=== PATIENT | female | born 1985 | race African-American/Black ===

== ENCOUNTER 2016-12-16 22:57 | Emergency (ER) | payer SELFPAY ==
[~2016-12-16] VITALS: Ht 170.2 cm; Wt 68.0 kg
[2016-12-16 23:10] VITALS: BP 118/77
[2016-12-16] MEDS ORDERED: NKM (23:12)
[2016-12-16] MEDS ORDERED: HYDROCORTISONE30 G2 TP (23:46)
[2016-12-16] MEDS ORDERED: BENADRYL25 MG ORAL (23:46)
[2016-12-16 23:51] VITALS: BP 118/77
--- NOTE | 2016-12-17 03:38 | Emergency Room Report ---
History of Present Illness General Chief Complaint: Animal Bite Source: Patient Present Illness HPI Patient is a 31-year-old female presented after increased lower extremity discomfort. Patient reported having a bite to her leg. She said this had become itchy as well as swollen. Patient reported having onset of symptoms a few hours ago. The patient denied any fever. She denied severe pain. Patient states that she had not had similar rashes in the past. Allergies: Coded Allergies: No Known Allergies (Unverified , 12/16/16) Patient History Past Medical History: see triage record Last Menstrual Period: 11/23/16 Now: No : 4 Para: 2 Reviewed Nursing Documentation: PMH: Agreed, PSxH: Agreed Nursing Documentation-PMH Past Medical History: No Stated History Review of Systems All Other Systems: negative except mentioned in HPI Physical Exam Vital Signs Date Time Temp Pulse Resp B/P (MAP) Pulse Ox O2 Delivery O2 Flow Rate FiO2 12/16/16 23:08 98.8 71 14 118/77 100 Room Air General Appearance: well appearing, no apparent distress, alert, GCS 15 Head: normocephalic, atraumatic ENT: hearing grossly normal, normal voice Neck: full range of motion, supple Respiratory: no respiratory distress, speaking full sentences Cardiovascular #1: regular rate, rhythm, no edema Gastrointestinal: normal bowel sounds, non tender Musculoskeletal: back normal, digits/nails normal, no calf tenderness Neurologic: normal inspection, alert, oriented x3, responsive, normal gait Psychiatric: mood/affect normal Skin: other - area of erythema to posterior calf without fluctuance or abscess. Medical Decision Making Diagnostic Impression: Primary Impression: Insect bite ER Course Patient presented for skin rash. Differential diagnosis included wasn't limited to cellulitis, insect bite, lymphangitis, black bite among others. Patient's benign exam and does not appear to require any further imaging or laboratory testing at this time. The patient was noted to have evidence of what appears to be allergy. The patient does not have what appears to be cellulitic or lymphangitis areas. There is no evident abscess. Patient will be given pressures were had a cortisone cream 2.5% as well as oral antihistamines. The patient was advised to return if she began having fever or increased induration or other concerns. she is advised to have the wound checked in 2 days Last Vital Signs Date Time Temp Pulse Resp B/P (MAP) Pulse Ox O2 Delivery O2 Flow Rate FiO2 12/16/16 23:51 98.8 71 14 118/77 100 Room Air Status: improved Disposition: HOME, SELF-CARE Condition: Stable Scripts Hydrocortisone (Hydrocortisone Cream 2.5%) Y Cream.appl 1 APPLIC TP BID, #30 GM Prov: Shai Barron 12/16/16 Diphenhydramine Hcl* (BENADRYL*) 25 Mg Capsule 25 MG ORAL Q6H Y for Itching, #20 CAP Prov: Shai Barron 12/16/16 Referrals: NON PHYSICIAN (PCP) Patient Instructions: Insect Bite Shai Barron Dec 17, 2016 03:38
== END 2016-12-16 23:51 | disposition home or self-care (01) ==
LOC: EMR 23:48
DX: S80.862A Insect bite (nonvenomous), left lower leg, initial encounter (principal); W57.XXXA Bitten or stung by nonvenomous insect and other nonvenomous arthropods, initial encounter; Y93.9 Activity, unspecified; Y92.9 Unspecified place or not applicable
CPT/HCPCS: 99283